=== PATIENT | male | born 1950 | race Caucasian/White ===

== ENCOUNTER 2023-05-17 18:27 | Emergency (ER) | payer MEDICARE, OTHER, SELFPAY ==
--- NOTE | 2023-05-17 18:45 | ED.NURSE ---
TDap up to date, was done on 06/02/2020
[2023-05-17 18:46] VITALS: BP 148/92; PULSE 96; RESP 18; TEMP 36.4; O2SAT 95; BMI 27.5
--- NOTE | 2023-05-17 18:58 | ED.GENADULT ---
HPI - General Adult General Chief complaint: Laceration/Wound Stated complaint: deep leg scrape Time Seen by Provider: 05/17/23 18:31 Source: patient Mode of arrival: ambulatory Limitations: no limitations History of Present Illness HPI narrative: 73-year-old male sent from urgent care for a laceration the lower left extremity. Patient stepped through a step ladder where his leg was between the 2 steps and the anterior henao caught on a metal bracket. Patient presents today with a U shaped laceration to the anterior henao. Denies any other injury. Tetanus shot is up-to-date as of 2019. Does take a daily baby aspirin. Related Data Home Medications Medication Instructions Recorded Confirmed aspirin 81 mg capsule 81 mg PO DAILY 05/17/23 05/17/23 diltiazem HCl 120 mg 120 mg PO DAILY 05/17/23 05/17/23 capsule,extended release 24 hr fludrocortisone 0.1 mg tablet 0.1 mg PO DAILY 05/17/23 05/17/23 fluticasone 500 mcg-salmeterol 50 1 ea inhalation BID 05/17/23 05/17/23 mcg/dose blistr powdr for inhalation (Advair Diskus) gabapentin 400 mg capsule 400 mg PO 3XD 05/17/23 05/17/23 pantoprazole 40 mg tablet,delayed 40 mg PO QAM 05/17/23 05/17/23 release potassium chloride 20 mEq 40 meq PO DAILY 05/17/23 05/17/23 tablet,extended release(part/cryst) (Klor-Con M) tamsulosin 0.4 mg capsule 0.4 mg PO DAILY 05/17/23 05/17/23 torsemide 20 mg tablet 20 mg PO DAILY 05/17/23 05/17/23 Previous Rx's Medication Instructions Recorded cephalexin 500 mg capsule 500 mg PO TID 7 days #21 caps 05/17/23 Allergies Allergy/AdvReac Type Severity Reaction Status Date / Time epinephrine Allergy Mild Palpitation Verified 05/17/23 18:44 s Review of Systems Status of ROS: Reports: 6 or more systems reviewed and unremarkable except as noted in History and below Exam Narrative: Exam Narrative: Well-nourished well-developed patient in no acute distress. Alert and oriented. Answers questions appropriately. Mood and affect are appropriate. Thoughts are goal oriented and rational. No tangential or magical thinking noted. Patient speaks in full sentences without needing to catch his breath. HEENT: Normocephalic atraumatic. Pupils are equally round reactive to light. Extraocular muscles are intact. Conjunctivae are moist without any icterus noted. Moist mucous membranes. Extremities: Patient has a U-shaped laceration to the anterior left henao. The 3 sides or approximately 1-1/2 inches in length. The laceration causes a flap that does have a thin layer of subcutaneous tissue present. The laceration does not cut through the subcutaneous tissue. There are no tendons or underlying anatomy visible. He does have 1 small superficial artery that is bleeding profusely. The flap of skin is very swollen and tight with very fragile I will skin overlying it. He has weak but present DP and PT pulses bilaterally. The skin is warm dry and intact with normal capillary refill. There is no evidence of a compartment syndrome. Const: Vital Signs, click to edit/add: Vital Signs - 24 hr 05/17/23 18:46 Temperature 97.6 F Pulse Rate [Right Pulse Oximeter] 96 Respiratory Rate 18 Blood Pressure [Ri ght Upper Arm] 148/92 H Pulse Oximetry 95 Oxygen Delivery Me thod Room Air Course Course ED Course: The wound was already anesthetized from urgent care. It was explored and cleaned. The flap of skin was tacked down on both the medial and lateral sides with 3-0 Ethilon. It was not possible to bring the flap of skin all the way down and so the distal border of the flap will not be sutured down. This border of the laceration is quite superficial and will remain open to heal by secondary intention the area is approximately 1-1/2 inches in length by less than a cm in height. Given the superficial nature of this area of the laceration this should heal without significant difficulty. A hemostatic suture with 4-0 Ethilon was placed over the skin to stop the bleeding artery. Vital Signs Vital signs: Initial Vital Signs Temperature 97.6 F 05/17/23 18:46 Temperature Source Temporal Artery Scan 05/17/23 18:46 Pulse Rate 96 05/17/23 18:46 Pulse Rhythm Regular 05/17/23 18:46 Respiratory Rate 18 05/17/23 18:46 Blood Pressure 148/92 H 05/17/23 18:46 Blood Pressure Mean 110 H 05/17/23 18:46 Blood Pressure Position Sitting 05/17/23 18:46 Pulse Oximetry 95 05/17/23 18:46 Oxygen Delivery Method Room Air 05/17/23 18:46 Vital Signs Temperature 97.6 F 05/17/23 18:46 Pulse Rate 96 05/17/23 18:46 Respiratory Rate 18 05/17/23 18:46 Blood Pressure 148/92 H 05/17/23 18:46 Pulse Oximetry 95 05/17/23 18:46 Oxygen Delivery Method Room Air 05/17/23 18:46 Temperature 97.6 F 05/17/23 18:46 Pulse Rate 96 05/17/23 18:46 Respiratory Rate 18 05/17/23 18:46 Blood Pressure 148/92 H 05/17/23 18:46 Pulse Oximetry 95 05/17/23 18:46 Oxygen Delivery Method Room Air 05/17/23 18:46 Medical Decision Making MDM Narrative Medical decision making narrative: Laceration to the anterior henao sutured per above. We discussed wound hygiene, elevation, signs and symptoms of infection and reasons to return for follow-up. Suture removal in approximately 1 week. Given the size of this laceration and the location I did opt to send him home with antibiotics. He can hold off on taking them for now and start taking right away if he notices any signs of infection. Discharge Plan Discharge Clinical Impression: Laceration Patient Disposition: Home, Self-Care Condition: Stable Additional Instructions: Elevate legs as much as possible throughout the day. If you are up walking around wear a compression stocking. This will prevent increased swelling. The less that it is swollen, the quicker it will heal. I will also send you home with antibiotics. Should the area turn red, become hot or have any purulent drainage, go ahead and start taking the antibiotic and follow-up with your primary care provider. Sutures should be removed in approximately 1 week with your primary care provider. Change dressing once per day. Once the scab has formed, can leave area uncovered. Prescriptions: New cephalexin 500 mg capsule 500 mg PO TID 7 Days Qty: 21 0RF No Action torsemide 20 mg tablet 20 mg PO DAILY gabapentin 400 mg capsule 400 mg PO 3XD potassium chloride [Klor-Con M20] 20 mEq tablet,ER particles/crystals 40 meq PO DAILY tamsulosin 0.4 mg capsule 0.4 mg PO DAILY pantoprazole 40 mg tablet,delayed release (DR/EC) 40 mg PO QAM fluticasone propion-salmeterol [Advair Diskus] 500-50 mcg/dose blister with device 1 ea INHALATION BID diltiazem HCl 120 mg capsule,extended release 24hr 120 mg PO DAILY fludrocortisone 0.1 mg tablet 0.1 mg PO DAILY aspirin 81 mg capsule 81 mg PO DAILY Stand Alone Forms: [facility] Info Instructions
--- NOTE | 2023-05-17 19:20 | ED.NURSE ---
Dressing placed to laceration, discussed ongoing dressing changes and other discharge instructions.
== END 2023-05-17 19:35 | disposition home or self-care (01) ==
PROVIDERS: Emergency Provider Family Medicine
DX: S81.812A Laceration without foreign body, left lower leg, initial encounter (principal)
CPT/HCPCS: 12001; 99283; 99284

== ENCOUNTER 2023-06-21 08:54 | Outpatient (CLI) | payer MEDICARE, OTHER, SELFPAY | END 2023-06-21 08:55 | disposition home or self-care (01) | PROVIDERS: Visit Provider Nurse Practitioner Family | DX: I87.312 Chronic venous hypertension (idiopathic) with ulcer of left lower extremity (principal); L97.822 Non-pressure chronic ulcer of other part of left lower leg with fat layer exposed; I87.2 Venous insufficiency (chronic) (peripheral); I73.9 Peripheral vascular disease, unspecified | CPT/HCPCS: 11042; 99213 ==

== ENCOUNTER 2023-06-28 09:40 | Outpatient (CLI) | payer MEDICARE, OTHER, SELFPAY | END 2023-06-28 09:41 | disposition home or self-care (01) | LOC: WOUND 09:40 | PROVIDERS: Visit Provider Nurse Practitioner Family | DX: I87.312 Chronic venous hypertension (idiopathic) with ulcer of left lower extremity (principal); L97.822 Non-pressure chronic ulcer of other part of left lower leg with fat layer exposed | CPT/HCPCS: 11042 ==

== ENCOUNTER 2023-07-17 10:15 | Outpatient (CLI) | payer MEDICARE, OTHER, SELFPAY | END 2023-07-17 10:16 | disposition home or self-care (01) | PROVIDERS: Visit Provider Physician Assistant | DX: I87.312 Chronic venous hypertension (idiopathic) with ulcer of left lower extremity (principal); I87.2 Venous insufficiency (chronic) (peripheral); L97.822 Non-pressure chronic ulcer of other part of left lower leg with fat layer exposed | CPT/HCPCS: 97597 ==

== ENCOUNTER 2023-08-07 09:57 | Outpatient (CLI) | payer MEDICARE, OTHER, SELFPAY | END 2023-08-07 09:58 | disposition home or self-care (01) | LOC: WOUND 09:57 | PROVIDERS: Visit Provider Nurse Practitioner Family | DX: I87.2 Venous insufficiency (chronic) (peripheral) (principal); I73.9 Peripheral vascular disease, unspecified; L97.828 Non-pressure chronic ulcer of other part of left lower leg with other specified severity; I87.312 Chronic venous hypertension (idiopathic) with ulcer of left lower extremity | CPT/HCPCS: G0463 ==

== ENCOUNTER 2023-10-30 13:45 | Outpatient (RCR) | payer MEDICARE, OTHER, SELFPAY ==
--- NOTE | 2023-09-20 12:47 | OT.OPOE ---
OT Outpatient Ortho Eval OT Outpatient Ortho Eval* Start: 09/20/23 08:07 Freq: Status: Active Protocol: Document 09/20/23 08:07 MIC (Rec: 09/20/23 12:45 MIC [id number]) E-signed By Judy Turner, OTR/L, CLT OT OP Ortho Eval Details Complexity Complexity Medium Insurance Information Insurance Information Medicare B Insurance Information Comments MEDICAL DX: S52.122A - Displaced fracture of head of left radius, initial encounter for closed fracture Outpatient History/Precautions Current Condition/Medical Diagnosis Referring Provider Gwendolyn Chauhan, MPH, PA-C Treatment Diagnosis M25.522-Pain in L Elbow, M25. 622-L Elbow Stiffness Date of Onset 09/14/23 Other Precautions Start OT for L elbow AROM and L Forearm Strengthening Dudley will gradually wean out of his sling over the next week. Patient will follow-up in 3-4 weeks for clinical re- evaluation. Other Conditions MEDICAL DX: S52.122A - Displaced fracture of head of left radius, initial encounter for closed fracture Contusion of elbow, left ( Acute) DOI: 09/14/23. S50.02XA - Contusion of left elbow, initial encounter Past Medical History Atrial fibrillation I48.91 - Unspecified atrial fibrillation (ICD-10) Congestive heart failure I50.9 - Heart failure, unspecified (ICD-10) COPD (chronic obstructive pulmonary disease) J44.9 - Chronic obstructive pulmonary disease, unspecified (ICD-10) Surgical History Ankle fracture: S82.899A - Other fracture of unspecified lower leg, initial encounter for closed fracture (ICD-10) History of left hip replacement: Z96.642 - Presence of left artificial hip joint (ICD-10) Medical/Functional History Medical History Reviewed Yes Prior Level of Function/Mobility Medication List: aspirin 81 mg PO DAILY cephalexin 500 mg PO TID 7 days diltiazem HCl 240 mg PO DAILY diltiazem HCl 120 mg PO DAILY fludrocortisone 0.1 mg PO DAILY fluticasone propion-salmeterol 500-50 mcg/dose (Advair Diskus) 1 ea inhalation BID gabapentin 400 mg PO 3XD hydrocodone-acetaminophen 5- 325 mg 1 tab PO Q6H PRN hydrocodone-acetaminophen 5- 325 mg 1 tab PO BID PRN pantoprazole 40 mg PO QAM potassium chloride ER (Klor- Con M) 40 mEq PO DAILY tamsulosin 0.4 mg PO DAILY torsemide 20 mg PO DAILY umeclidinium 62.5 mcg/ actuation (Incruse Ellipta) 1 inh inhalation DAILY Social History Employment Status Retired 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 Therapist checked vitals: 150/72, HR was all over the place 133-198 bpm and oxygen on Room air between 90-93% Had patient move to a mat table to get supine and warmed up (placed moist heat over patient to warm him up, he stopped shaking. Asked patient if he took his morning medications and he said he took everything put his water pill (he is out of his medication). After laying down, 147/79, HR 111 bpm and oxygen 91% on RA. Therapist led patient lay down for an additional hour and re -took vitals again 134/76, HR 106 and oxygen on RA 91%. Patient said he was going to go home and take a nap; he has a doctor apt on Sunday to get a CT of Heart/Lungs. 73 year-old male saw Ortho on 09/17/23 with chief compliant of left elbow pain x 3 days. DOI : 09/14/23. Patient tripped [place] step [place] a bowling [place], falling onto his right knee and lateral elbow. Patient was seen at [facility] where imaging showed a possible, subtle, nondisplaced radial neck fracture. Patient was placed in a sling. Pain is located over his lateral elbow. Pain worsens with supination and full extension. Pain has improved with his sling. Denies right knee pain and reports no knee related concerns. Patient admits to numerous bruises throughout his body (right and left forearms, left dorsal hand, bilateral knees) from various injuries. Patient has h/o neuropathy and trouble with balance. Patient also explains he bruises easily; currently takes aspirin 81 mg daily. Denies previous left elbow injuries. Patient enjoys his senior exercises classes that he does 3-4x/week and is disappointed that this injury will remove him from these classes for the time being. Pain Assessment Pain Present Pain Present Pain Reported Location Left Elbow Description Tightness,Throbbing,With Movement,Heaviness Intensity 7 Goniometric Comments Goniometric Comments Goniometric Comments L Elbow ROM: 30-130 degrees. Pronation is full at 90 degrees Supination 78 degrees, slow effort and grimacing with supination. L Wrist extension 48 degrees, moderate pain with wrist extension. L Wrist Flexion, 50 degrees, no pain but does not have full AROM OT Objective Data Observations/Posture/Limb Appearance Objective Observations X-RAY 3-view left elbow images were reviewed from [facility] dated 09/14/2023. These show: no obvious acute fractures, however possible, subtle nondisplaced radial neck fracture. Positive anterior sail sign. Radial head points to capitellum. No dislocations . Appropriate joint space. Enthesophyte posterior olecranon. No images available for comparison purposes. Additional Information Objective Additional Information Left elbow: Numerous areas of ecchymosis throughout right and left forearms and left dorsum of the hand. No open wounds. No obvious elbow effusion. Moderate tenderness over lateral olecranon 2 cm distal to lateral epicondyle. Nontender: medial epicondyle, radial head, posterior olecranon. CMS intact with 2+ radial pulse. Brisk capillary refill. OT Problems Problems Problems Decreased Strength,Decreased Range of Motion,Pain,Lifting, Gripping,Pinching Problems Comments Patient reports waking up in the middle of the night from pain in the L elbow, therapist showed patient how to position his L UE at [facility] when going to bed, using a pillow for support. Other Problems Opening Containers,Dressing, Fasteners,Sleeping Patient Potential Excellent Assessment Assessment Assessment 73 year-old male saw Ortho on 09/17/23 with chief compliant of left elbow pain x 3 days. DOI : 09/14/23. Patient tripped on one step at a bowling alley, falling onto his right knee and lateral elbow. Patient was seen at [facility] where imaging showed a possible, subtle, nondisplaced radial neck fracture. Patient was placed in a sling. Pain is located over his lateral elbow. Pain worsens with supination and full extension. Pain has improved with his sling. Denies right knee pain and reports no knee related concerns. Patient admits to numerous bruises throughout his body (right and left forearms, left dorsal hand, bilateral knees) from various injuries. Patient has h/o neuropathy and trouble with balance. Patient also explains he bruises easily; currently takes aspirin 81 mg daily. Denies previous left elbow injuries. Patient enjoys his senior exercises classes that he does 3-4x/week and is disappointed that this injury will remove him from these classes for the time being. Therapist has reviewed Ortho's note and will follow stated order/restriction and precautions, progressing patient as he tolerates. X ray report was reviewed by therapist ...subtle nondisplaced radial neck fracture. Positive anterior sail sign. Radial head points to capitellum. No dislocations . Appropriate joint space. Enthesophyte posterior olecranon. PLAN: treat pain symptoms with the use of modalities as indicated, manual therapy for progressing AROM, development of an individualized HEP, patient education on the progression of treatment and activity modifications while healing. Occupational Therapy Treatment Plan - OP Potential Rehabilitation Potential Excellent Barriers Barriers to goal attainment 1. Patient is an everyday smoker, this will impact the speed of healing. 2. Health comorbidities Set Goals Goals Set with Patient Yes Goals Goals 1. Patient will improve L Elbow ROM from 30-130 degrees to 10-150 degrees without pain levels >2/10. 2. Patient will improve L UE Supination from 78 degrees to >84 degrees without pain levels >2/10. 3. Pt will demonstrate pain- free flower cutter and pinch strength comparable to the uninvolved side in order to improve functional grasp, hold, reach, and lifting ability needed to complete self-care, leisure tasks, and work activities. 4. Through activity participation in skilled therapy sessions, and consistency in performing a customized HEP, patient will improve capacity of tendons and muscles to manage load in order to have less pain with ADLs, work, leisure activities and IADLs. Target Date 6 weeks Treatment Plan Treatment Plan Evaluation,Edema Control, Iontophoresis,Joint Mobilization,Manual Therapy, Ultrasound,Therapeutic Exercise,Self Care/Home Management,Education Expected Frequency 1-2x Week Expected Duration 8-10 Weeks Home Program Home Program Home Program Initiated Home Program Specifics Access Code: [email or web address] URL: [email or web address] Date: 09/20/2023 Prepared by: Judy Turner Exercises - Supine Elbow Extension Stretch in Supination - 1 x daily - 7 x weekly - 3 sets - 10 reps - Seated Elbow Extension and Shoulder External Rotation AAROM at Table with Towel - 1 x daily - 7 x weekly - 3 sets - 10 reps - Seated Elbow Flexion and Extension AROM - 1 x daily - 7 x weekly - 3 sets - 10 reps - Seated Forearm Pronation and Supination AROM - 1 x daily - 7 x weekly - 3 sets - 10 reps - Forearm AAROM Supination and Pronation with Ball - 1 x daily - 7 x weekly - 3 sets - 10 reps - Wrist AROM Flexion Extension - 1 x daily - 7 x weekly - 3 sets - 10 reps - Wrist AAROM Flexion and Extension - 1 x daily - 7 x weekly - 3 sets - 10 reps Recertification Information Recertification Information Initial Certification Date 09/20/23 Recertification Due Date 12/19/23 Click To Default 'Per treatment plan' Per treatment plan Continued Plan of Care and Interventions Per treatment plan Provider Signature Shows Agreement With POC & Medical Necessity Physician Comment/Change Comment or Changes Physician NPI Number #
== END 2023-10-30 14:29 | disposition home or self-care (01) ==
PROVIDERS: Visit Provider Physician Assistant Surgical
DX: S52.122A Displaced fracture of head of left radius, initial encounter for closed fracture (principal); M25.522 Pain in left elbow; M25.622 Stiffness of left elbow, not elsewhere classified; Z51.89 Encounter for other specified aftercare
CPT/HCPCS: 97110; 97166; X5282